=== PATIENT | male | born 1935 | race Asian ===

== ENCOUNTER → 2016-08-30 | Outpatient (CLI) | payer MEDICAID ==
[~2016-08-30] MED LIST: IODIXANOL LOCM 100 ML BTL ONE; IODIXANOL LOCM 50 ML BTL ONE; SOD CHLORIDE 0.9% 100 ML ONE
--- NOTE | 2016-08-30 16:05 | RADRPT ---
PROCEDURE: CT angiogram of the abdomen and pelvis with bilateral lower extremity runoff and with 3 -D reconstructions CLINICAL INDICATION: ENDO LEAK TECHNIQUE: CT angiogram of the abdomen and pelvis with lower extremity runoff was performed on a Wisr CT scanner . The patient was scanned after administration of intravenous contrast. Sagit bk and coronal reformatted images were obtained from the axial source images. 3D MIP reformatted im ages were also created from the axial source images. DLP 617.68 mGycm CTDI vol 10.56, 4.33 mGy COMPARISON: None FINDINGS: ANGIOGRAM: There is no acute dissection of the abdominal aorta. The celiac and SMA are widely patent. There are single renal arteries bilaterally which are widely patent. The infrarenal aorta is tortuous. There is an infrarenal aortic aneurysm status post aortobi-iliac stent graft repair with proximal fixation just below the level of the renal arteries and distal fixa tion in bilateral common iliac arteries. The aneurysm sac measures up to 5.6 x 5.2 cm in maximum ax ial dimensions with a center line measurement. There is no evidence of an endoleak. 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 Common, internal and external iliac arteries are patent bilaterally. RIGHT LOWER EXTREMITY: The [employer]LE [employer]ATOR, SFA, and profunda arteries are widely patent. The popliteal artery is widely patent. There is two-vessel uninterrupted runoff to the right ankle from the anterior tibial and peroneal ar teries. The right posterior tibial artery is not identified. Below the ankle a patent dorsalis ped is artery is noted in the peroneal artery is noted to continue as the posterior tibial artery on the plantar surface of the foot. LEFT LOWER EXTREMITY: The PILE [employer]IVER OPERATOR, SFA, and profunda arteries are widely patent. The popliteal artery is widely patent. Infrapopliteal vessels are widely patent and there is good three-vessel runoff to the level of the a nkle. Patent dorsalis pedis and posterior tibial arteries are noted below the ankle. ANCILLARY: There are 2 large cystic lesions in the right lobe of the liver measuring up to 7.7 cm and 4.2 cm. There is a simple cyst in segment 4B of the liver measuring up to 1.3 cm. There is a 1.4 cm simple cyst in segment 2 of the liver. There are sub centimeter hypodensities scattered throughout the jh er which are too small to characterize, but are likely cysts. There is cholelithiasis. There are sub centimeter hypodensities in bilateral kidneys which are too small to characterize, but are likely cysts. There are numerous colonic diverticula without evidence of diverticulitis. A dense 1 cm round structure is identified and a loop of bowel in the left abdomen on series 2, imag e 82 which may be an iron pill. The appendix is within normal limits. There are colonic diverticula without evidence of diverticuli tis. IMPRESSION: 5.6 cm infrarenal aortic aneurysm status post aortobi-iliac stent graft repair without evidence of a n endoleak. Femoropopliteal arteries are widely patent bilaterally. Two-vessel uninterrupted runoff to the right ankle and three-vessel uninterrupted runoff to the left ankle, as above. Multiple hepatic cysts measuring up to 7.7 cm. Cholelithiasis. Dense 1 cm structure inside a loop of bowel the left abdomen may be an iron pill. Clinical correlat ion is recommended. Colonic diverticula without evidence of diverticulitis. RPTAT: EE Physician Dorita Date Time Electronically viewed and signed by Physician Dorita on 08/30/2016 16:05 /
== END | disposition home or self-care (01) ==
LOC: C/S 11:19
PROVIDERS: ATTEND Student in an Organized Health Care Education/Training Program
DX: I72.2 Aneurysm of renal artery (principal); K76.89 Other specified diseases of liver; K80.20 Calculus of gallbladder without cholecystitis without obstruction; K57.90 Diverticulosis of intestine, part unspecified, without perforation or abscess without bleeding
CPT/HCPCS: 75635; Q9967; Z7610